=== PATIENT | female | born 1985 | race African-American/Black ===

== ENCOUNTER 2023-01-24 07:41 | Inpatient (IN) ==
[2023-01-24] MEDS ORDERED: OXYTOCIN 30 UNITS/500 ML BAG IV PRN ×2 (07:43)
[2023-01-24] MEDS ORDERED: LIDOCAINE 1% LOCAL 20 ML VIAL INFIL PRN (07:43)
[2023-01-24 08:32] LABS: Hematocrit (blood only) 34.3 % (37.0-47.0); Hemoglobin 11.9 g/dl (12.0-16.0); Mean Corpuscular Hemoglobin 29.2 pg (25.0-34.0); Mean Corpuscular Hgb Conc 34.7 g/dL (32.0-36.0); Mean Corpuscular Volume 84.3 fL (80.0-100.0); Mean Platelet Volume 12.6 fL (9.4-12.4); Platelet Count 131 K/uL (130-400); RDW Coefficient of Variation 14.6 % (11.5-14.5); RDW Standard Deviation 44.4 fL (36.4-46.3); Red Blood Count 4.07 M/uL (4.20-5.40); White Blood Count 4.44 K/ul (4.8-10.8)
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
[2023-01-24] MEDS: LACTATED RINGER'S 1,000 ML IV PRN ×2 (09:35→17:39)
[2023-01-25] MEDS: LACTATED RINGER'S 1,000 ML IV PRN ×2 (01:28→03:19)
[2023-01-25] MEDS ORDERED: ePHEDrine sulfate 50 MG/ML AMP ONE (01:32)
[2023-01-25] MEDS ORDERED: SODIUM CHLORIDE 0.9% PF INJ 10 ML VIAL ONE (01:32)
[2023-01-25] MEDS ORDERED: BUPIVACAINE 0.25% PF 30 ML VIAL ONE (01:32)
[2023-01-25] MEDS ORDERED: fentaNYL citrate PF 100 MCG/2 ML VIAL ONE (01:32)
[2023-01-25] MEDS ORDERED: LIDOCAINE 2%/EPINEPHRINE 1:200,000 20 ML PF ONE (01:33)
[2023-01-25] MEDS ORDERED: fentaNYL 2MCG/ML ROPIVACAINE 1.25MG/ML 100 ML BAG EPI ONE (01:33)
[2023-01-25] MEDS ORDERED: NALBUPHINE HCL INJ 10 MG/ML AMP IV PRN (02:24)
[2023-01-25] MEDS ORDERED: LIDOCAINE 2%/EPINEPHRINE 1:200,000 20 ML PF EPI STA (02:24)
[2023-01-25] MEDS ORDERED: diphenhydrAMINE 50 MG/ML VIAL IV PRN (02:24)
[2023-01-25] MEDS ORDERED: SODIUM CHLORIDE 0.9% PF INJ 10 ML VIAL EPI PRN (02:24)
[2023-01-25] MEDS ORDERED: NALOXONE HCL 1 MG in SODIUM CHLORIDE 0.9% 1000ML 1,000 ML IV PRN (02:24)
[2023-01-25] MEDS ORDERED: fentaNYL citrate PF 100 MCG/2 ML VIAL EPI STA (02:24)
[2023-01-25] MEDS ORDERED: NALOXONE HCL 0.4 MG/1 ML VIAL/CARP IV PRN (02:24)
[2023-01-25] MEDS ORDERED: SODIUM CHLORIDE 0.9% PF INJ 10 ML VIAL EPI STA (02:24)
[2023-01-25] MEDS ORDERED: fentaNYL 2MCG/ML ROPIVACAINE 1.25MG/ML 100 ML BAG EPI PRN (02:24)
[2023-01-25] MEDS ORDERED: ROPIVACAINE 0.5% PF 5 MG/ML 20 ML VIAL EPI PRN (02:24)
[2023-01-25] MEDS ORDERED: ONDANSETRON INJ 2 MG/ML 2 ML VIAL IV PRN (02:24)
[2023-01-25] MEDS ORDERED: LIDOCAINE 2% MPF LOCAL 5 ML VIAL EPI PRN (02:24)
[2023-01-25] MEDS ORDERED: BUPIVACAINE 0.25% PF 30 ML VIAL EPI PRN (02:24)
[2023-01-25] MEDS ORDERED: fentaNYL citrate PF 100 MCG/2 ML VIAL EPI PRN (02:24)
[2023-01-25] MEDS ORDERED: ePHEDrine sulfate 50 MG/ML AMP IV PRN (02:24)
[2023-01-25] MEDS ORDERED: BUPIVACAINE 0.25% PF 30 ML VIAL EPI STA (02:24)
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
[2023-01-25] MEDS ORDERED: SILVER NITR/POTASSIUM NITRATE APPLICATOR ONE (08:09)
[2023-01-25] MEDS ORDERED: DIPHTHERIA/TETANUS/PERTUSSIS Vaccine (Tdap, Age 7+yrs) 0.5mL SYR/VL IM ONE (08:20)
[2023-01-25] MEDS ORDERED: bisacodyL 10 MG SUPP PR PRN (08:20)
[2023-01-25] MEDS ORDERED: BENZOCAINE 20% AER SPR 82.5 GM CAN EXT PRN (08:20)
[2023-01-25] MEDS ORDERED: HYDROCORTISONE ACETATE 25 MG SUPP PR PRN (08:20)
[2023-01-25] MEDS ORDERED: ACETAMINOPHEN 325 MG TAB PO PRN (08:20)
[2023-01-25] MEDS ORDERED: OXYTOCIN 30 UNITS/500 ML BAG IV PRN (08:20)
[2023-01-25] MEDS ORDERED: ceFAZolin 330 MG/ML 1 GM VIAL IV STA (08:26)
[2023-01-25] MEDS ORDERED: SILVER NITR/POTASSIUM NITRATE APPLICATOR EXT STA (08:41)
[2023-01-25] MEDS ORDERED: ceFAZolin 1000MG 1,000 MG/7.5 ML SYR IV ONE (08:45)
--- NOTE | 2023-01-25 10:53 | Anesthesia Procedure Note ---
Date of Service January 25, 2023 Anesthesia Post Epidural Note Vital Signs Vital Signs: Temp Pulse Resp BP Pulse Ox 98.2 F 90 20 118/69 100 01/25/23 07:00 01/25/23 10:45 01/25/23 10:45 01/25/23 10:45 01/25/23 08:33 Pain Intensity Bilateral Lower Abdomen: Pain Intensity: 1 Notes Mental Status: alert / awake / arousable and participated in evaluation Nausea / Vomiting: adequately controlled Pain: adequately controlled Airway Patency, RR, SpO2: stable & adequate BP & HR: stable & adequate Hydration State: stable & adequate Neuraxial Anesthesia: was administered and sensory block is resolving Anesthetic Complications: no major complications apparent and Pt Satisfied with anesthetic care Epidural: Removed without complications and With tip intact
[2023-01-25] MEDS: IBUPROFEN 600 MG TAB PO PRN (13:59)
--- NOTE | 2023-01-25 14:37 | Delivery Summary ---
Vaginal Delivery Summary Date of Service January 25, 2023 Vaginal Delivery Summary (manual extraction of placenta) and 1st Degree LAC Patient is a 37-year-old 3 para 2-0-0-2 female who presents for induction of labor on her due date. She had a cervical balloon successfully deanna pb and Pitocin induction of her contractions at the same time. The balloon fell out several hours later. Her had to leave the hospital for several hours and patient wanted to delay rupture of membranes until his return. Membranes were then ruptured for clear fluid. She was attempting an unmedicated however because of fatigue, she requested epidural analgesia at approximately 2 AM which was successful. She then progressed to full dilation and pushed effectively through 3 contractions for delivery of a viable female infant. After the head was delivered, there was a tight nuchal cord which had to be clamped and cut prior to delivering the rest of the infant. The shoulders were delivered without maternal effort. The was placed on the mother's abdomen for further attention and drying. She was vigorous and moving all 4 limbs. After cord clamp was obtained, spontaneous delivery of the placenta was not forthcoming. Exam noticed the placenta edge in the cervical os. Manual extraction of the placenta was then performed. Post extraction exam of the uterine cavity was found to be free of any placental tissue or membranes. bleeding was controlled with dilute Pitocin and fundal massage. Her bladder was then emptied for 600 cc of urine. This was done using sterile technique. A first-degree perineal laceration was repaired in the usual fashion with 3-0 chromic. A skin tag on the perineum was also removed. The bleeding at the skin tag removal site was initially controlled with silver nitrate but this was unsuccessful. A single [id number] stitch of 3-0 chromic was then used to control bleeding at the skin tag removal site. Estimated blood loss was 400 cc. Patient did receive 1 g of Ancef IV because of the manual extraction of the placenta. Mother and infant were doing well after delivery. [facility] [place]aginal Delivery Charge Delivery Type Details: (manual extraction of placenta) and 1st Degree LAC
[2023-01-25] MEDS: DOCUSATE SODIUM 100 MG CAP PO SCH (20:34)
[2023-01-26] MEDS: IBUPROFEN 600 MG TAB PO PRN ×2 (03:36→08:23)
--- NOTE | 2023-01-26 06:38 | Obstetrical Progress Note ---
Date of Service January 26, 2023 Assessment & Plan (1) Encounter for induction of labor: day #1 Well no fever at this stage had a manual placental extraction awaiting on her labs continue current care Subjective Ambulation: ambulating normally Voiding: no voiding problems Passing Gas:: Yes Diet Tolerance:: regular diet Lochia:: Small Feeding Type:: breast feeding Current Pain Level(1-10): 1 Constitutional: + as per Subjective / HPI Physical Exam Constitutional WD/WN, vitals as above well developed and well nourished Respiratory normal respiratory effort, lungs clear to auscultation normal respiratory effort Cardiovascular RRR, no murmur, no edema Gastrointestinal (Abdomen) normal bowel sounds, soft, nontender, no hepatosplenomegaly Results & Data Vital Signs (Past 12 Hours) Vital Signs Temp Pulse Resp BP Pulse Ox O2 Del Method 01/26/23 03:30 98.2 F 81 22 117/73 99 Room Air 01/25/23 23:27 98.4 F 80 18 114/66 99 Room Air 01/25/23 19:33 98.4 F 89 16 117/74 98 Room Air
[2023-01-26 06:57] LABS: Hematocrit (blood only) 29.7 % (37.0-47.0); Hemoglobin 10.4 g/dl (12.0-16.0); Mean Corpuscular Hemoglobin 29.5 pg (25.0-34.0); Mean Corpuscular Volume 84.1 fL (80.0-100.0); Mean Platelet Volume 12.6 fL (9.4-12.4); Platelet Count 142 K/uL (130-400); RDW Coefficient of Variation 14.9 % (11.5-14.5); RDW Standard Deviation 45.1 fL (36.4-46.3); Red Blood Count 3.53 M/uL (4.20-5.40); White Blood Count 8.83 K/ul (4.8-10.8)
[2023-01-26] MEDS ORDERED: PRENATAL VITAMIN 1 TAB PO SCH (08:00)
[2023-01-26] MEDS: DOCUSATE SODIUM 100 MG CAP PO SCH (08:23)
[2023-01-26] MEDS ORDERED: bisacodyL 5 MG TABEC PO SCH (20:00)
== END 2023-01-26 17:15 | disposition home or self-care (01) | DRG 807 ==
LOC: 4S1 07:41 → 4E2 01-25 11:57